=== PATIENT | female | born 1970 | race Caucasian/White ===

== ENCOUNTER → 2019-04-19 | Outpatient (CLI) | payer OTHER ==
--- NOTE | 2019-04-19 19:49 | Diagnostic Imaging Report ---
EXAMINATION: Digital mammogram bilateral diagnostic with 3-D tomosynthesis. The current study was also evaluated with a Computer Aided Detection (CAD) system. INDICATION: Left breast lump. This study was compared to the prior exam of 06/14/2013. At this time, the patient does complain of 2 lumps in the left breast. The lumps are located in the 8 and 10 o'clock position. There is also a lump in the 5 o'clock position of the right breast. Marker was placed over the areas of concern. There is no primary or secondary sign of malignancy associated with of the markers. Even so, ultrasound would be recommended for further study. The fibroglandular tissue in both breasts is heterogeneously dense. This does limit the sensitivity of this exam. Overall, there does not appear to have been any significant change when compared to the previous study. The stereotactic clip in the retroareolar region of the right breast seen previously is again evident and no different. There is no primary or secondary sign of malignancy noted. IMPRESSION: 1. There is no evidence of malignancy. 2. Ultrasound of both breasts is pending for further evaluation. ACR BI-RADS Category 0: Incomplete. (Needs additional imaging evaluation). Result letter will be mailed to the patient. Note: At least 10% of breast cancer is not imaged by mammography. Dictated by: Dictated on workstation # [id number]
--- NOTE | 2019-04-19 20:06 | Diagnostic Imaging Report ---
EXAMINATION: Bilateral breast ultrasound. INDICATION: Bilateral breast masses. FINDINGS: By history, the patient has two masses in the left breast and a single mass in the right breast. The diagnostic mammogram performed prior to this study failed to show any sign of malignancy in either breast. On this study, there is no discrete solid or cystic mass in the areas of concern. It may be that the palpable masses in question are related to fibroglandular tissue alone. Even so, if clinical concern regarding an underlying abnormality persists, then biopsy should still be considered. IMPRESSION: 1. There is no evidence for malignancy. Clinical follow-up is recommended. ACR BI-RADS Category 1: Negative. Dictated by: Dictated on workstation # [id number]
== END ==
LOC: RAD 12:56
PROVIDERS: ATTEND Nurse Practitioner Family
DX: N63.24 Unspecified lump in the left breast, lower inner quadrant (principal); N63.22 Unspecified lump in the left breast, upper inner quadrant; N63.14 Unspecified lump in the right breast, lower inner quadrant
CPT/HCPCS: 76642; 77066